=== PATIENT | female | born 1955 | race Caucasian/White ===

== ENCOUNTER 2017-09-22 15:18 | Inpatient (IN) | payer MEDICAID, OTHER ==
[2017-09-22] MEDS ORDERED: Ketorolac Tromethamine 30 MG/ML VIAL ONE (15:59)
[2017-09-22] MEDS ORDERED: Dextrose 5% in Water 1,000 ML IV PRN (17:06)
[2017-09-22] MEDS ORDERED: Dextrose 50% Abboject 50 ML SYRINGE SLOW IVP PRN (17:06)
[2017-09-22] MEDS ORDERED: Ondansetron HCl/PF 4 MG/2 ML Vial IVP PRN (17:06)
[2017-09-22] MEDS ORDERED: D5 1/2 NS w/20 mEq KCL 1,000 ML IV SCH (17:15)
[2017-09-22 18:57] LABS: #Eosinphils 0.1 thou/uL (0.0-0.7); #Lymphocytes 1.9 thou/uL (1.20-3.40); #Monocytes 0.6 thou/uL (0.11-0.59); %Eosinophils 0.5 % (0.0-10.0); %Lymphocytes 16.4 % (21.0-51.0); %Monocytes 4.9 % (0.0-10.0); %Neutrophils 78.2 % (42.0-75.0); Hemoglobin 10.2 g/dL (12.0-16.0); Mean Corpuscular HGB CONC 32.7 g/dL (32.0-36.0); Mean Corpuscular Hemoglobin 28.8 pg (27.0-31.0); Mean Platelet Volume 7.8 fL (7.4-10.4); Platelet Count 273 thou/uL (130-400); RBC Distribution Width 12.8 % (11.5-14.5); Red Blood Cell (RBC) Count 3.54 mill/uL (4.20-5.40); White Blood Cell (WBC) Count 11.5 thou/uL (4.8-10.8)
[2017-09-22 19:05] LABS: PTT 23.7 SEC (22.9-36.1); Prothrombin Time 13.3 SEC (12.0-14.7)
[2017-09-22 19:26] LABS: ALT (SGPT) 153 U/L (8-55); AST (SGOT) 342 U/L (5-34); Albumin 3.7 g/dL (3.5-5.0); Alkaline Phosphatase 129 U/L (40-150); Anion Gap 11 mmol/L (10-20); BUN (Urea Nitrogen) 25 mg/dL (9.8-20.1); Bilirubin, Total 0.5 mg/dL (0.2-1.2); Calc. Creatinine Clearance 0 mL/min (70-130); Calcium 8.8 mg/dL (7.8-10.44); Carbon Dioxide 25 mmol/L (22-29); Chloride 107 mmol/L (98-107); Estimated GFR-MDRD 48; Globulin 2.6 g/dL (2.4-3.5); Glucose 280 mg/dL (70-105); Potassium 4.7 mmol/L (3.5-5.1); Protein, Total 6.3 g/dL (6.0-8.3); Sodium 138 mmol/L (136-145)
--- NOTE | 2017-09-22 19:51 | RAD ---
RADIOGRAPH PELVIS 1 VIEW: 09/22/17 HISTORY: 61-year-old female status post trauma to the pelvis from fall. FINDINGS: The pelvic ring is intact with no evidence of fracture or dislocation. IMPRESSION: Negative. POS: BUBBA
--- NOTE | 2017-09-22 19:54 | RAD ---
RADIOGRAPH CHEST 1 VIEW: 09/22/17 HISTORY: 61-year-old female with femoral fracture. Preoperative clearance. FINDINGS: There is cardiomegaly. There is no evidence of air space density, pulmonary edema, or pneumothorax. T he lateral costophrenic angles are sharp. IMPRESSION: 1) No acute pulmonary findings. 2) Cardiomegaly without congestive heart failure. caryn [] POS: BUBBA
--- NOTE | 2017-09-22 21:03 | HP ---
DATE OF ADMISSION: 09/22/2017 ADMITTING PHYSICIAN: Dr. Jarrod Cordero. CONSULTING PHYSICIAN: Dr. Jarad Soliz. HISTORY OF PRESENT ILLNESS: A 61-year-old female presented to an outside facility and then transferred to [facility] after a ground level fall in which she sustained a left distal femur fracture. She reports she was ambulating with her walker when she stumbled and fell to the ground onto her left leg. She was then unable to get up and EMS was summoned and transported her to an outside facility where the femur fracture was identified. She is now being transferred to [facility] for higher level of care. She complained of numbness of bilateral lower extremities from chronic diabetic neuropathy. She is able to move all extremities. Pain in left thigh area is exacerbated by movement, relieved by nothing. PAST MEDICAL HISTORY: Diabetes, hyperlipidemia, hypertension, chronic back pain. PAST SURGICAL HISTORY: Cholecystectomy, appendectomy. SOCIAL HISTORY: Patient lives at home with her father. She denies tobacco, alcohol, or drug use. FAMILY HISTORY: Patient reports unknown cardiac history from parents as well as siblings. CURRENT MEDICATIONS: Gabapentin 800 mg p.o. b.i.d., lisinopril/ hydrochlorothiazide 20/12.5 mg 1 tablet p.o. q. day. REVIEW OF SYSTEMS: Constitutional: Patient denies chills, fever, weight loss or gain, weakness. Pulmonary: Patient denies shortness of breath, difficulty breathing, or cough. Cardiovascular: Patient denies chest pain or palpitations. Gastrointestinal: Patient denies abdominal pain, nausea, vomiting, diarrhea, or constipation. Musculoskeletal: Patient reports chronic back pain and left distal thigh pain, bilateral lower extremity neuropathy. Neurologic: Patient denies focal weakness, seizures, headache, or paresthesia. PHYSICAL EXAMINATION: VITAL SIGNS: Blood pressure 112/46, pulse 66, respirations 22, temperature 97.8 , O2 sat 94% on room air. CONSTITUTIONAL: Well-nourished, well-developed female in no acute distress. HEENT: Normocephalic, atraumatic. PULMONARY: Bilateral breath sounds equal. No respiratory distress. CARDIAC: Regular rate and rhythm. Heart sounds normal. ABDOMEN: Soft, nontender, nondistended. EXTREMITIES: Left lower extremity, painful distal thigh with movement. Numbness to bilateral lower extremities. Patient reports there is chronic due to diabetic neuropathy. Cap refill brisk. Upper extremities, normal range of motion. Neurovascularly intact. NEUROLOGIC: GCS 15. Awake, alert, oriented. ASSESSMENT: 1. A 61-year-old female status post ground level fall. 2. Comminuted supracondylar left distal femur fracture with intercondylar extension. 3. History of diabetes. 4. History of hypertension. PLAN: 1. Admit to hospital by the Trauma services. 2. Consult Dr. Jarad Soliz, Orthopedics done by GLORIA Johnson 3. Diabetic diet tonight. N.p.o. after midnight. 4. Plan for OR tomorrow with Orthopedics. HPI, review of system, physical exam, assessment and plan were discussed with attending surgeon, Dr. Cordero. MIKE
[2017-09-22 21:39] VITALS: BMI 38.9
[2017-09-22] MEDS: Famotidine/PF 20 mg/2ml Vial SLOW IVP SCH (21:45)
[2017-09-22] MEDS: Morphine 4 MG/ML VIAL SLOW IVP PRN (21:46)
[2017-09-23] MEDS: D5 1/2 NS w/20 mEq KCL 1,000 ML IV SCH ×3 (00:22→17:14)
[2017-09-23] MEDS: Ketorolac Tromethamine 30 MG/ML VIAL IVP SCH ×4 (00:23→17:20)
[2017-09-23 06:28] LABS: Bilirubin Small (Negative); Blood, Urine Negative (Negative); Clarity CLOUDY (Clear); Glucose, Urine (Dipstick) 500 mg/dL (Negative); Leukocyte Moderate (Negative); Nitrite Negative (Negative); Protein, Urine (Dipstick) Negative (Neg-Trace); Specific Gravity, Urine 1.027 (1.002-1.036); Urobilinogen 0.2 mg/dL (0.2-1.0); pH, Urine 5.5 (5.0-9.0)
[2017-09-23 06:31] LABS: Bacteria/HPF 1+ HPF (None Seen); Hyaline Casts/LPF 0-3 HYALINE CAST LPF (0-3 Hyaline); Pathc Cast-AUWi Flag 0.67 (0-2.49); WBC/HPF 21-50 HPF (0-3)
--- NOTE | 2017-09-23 08:16 | CON ---
DATE OF CONSULTATION: 09/22/2017 CONSULTING DIAGNOSIS: Left femur fracture. HISTORY OF PRESENT ILLNESS: Ms. Braun is a 61-year-old female with history of diabetes, diabetic ne uropathy, limited ambulatory status, who walks just mainly around the house using a walker, who prese nts with complaining of left knee pain. The patient fell while standing up. The patient rates her p ain as high as 10/10. PAST MEDICAL HISTORY: She states that she has not ambulated for some period of time. PAST MEDICAL HISTORY: Include diabetes, neuropathy, hyperlipidemia, hypercholesterolemia, hypertensi on, and low back pain. PAST SURGICAL HISTORY: Include a cholecystectomy and an appendectomy. MEDICATIONS: Please see administration list for full list. ALLERGIES: No known drug allergies. SOCIAL HISTORY: Nonsmoker, nondrinker and no alcohol. The patient's son is at bedside. REVIEW OF SYSTEMS: Noncontributory. PHYSICAL EXAMINATION: VITAL SIGNS: 112/46, 60, 22, 97.8 and pain is 10/10, and 94% on room air. GENERAL: Alert and oriented female in no acute distress, resting in bed. EXTREMITIES: Left lower extremity, the patient has an external rotated left lower extremity with no open wounds. The patient has a plantar flex foot. It is warm and well perfused. The patient has no sensation from her tibia down to her foot or limited sensation. She is not moving her foot or plant arflex her foot, which patient states is consistent with previous exam. Her right lower extremity puentes s weak plantar dorsiflexion and 3/5 plantar flexion. Radiographs of the patient's left lower extremi ty show a left distal femur fracture with an intracondylar split with diffuse osteopenia and degenera tive changes in the left knee. IMPRESSION: 1. Left distal femur fracture, supracondylar fracture demonstrating intercondylar split. 2. Diabetes. 3. Neuropathy. 4. Hypertension. 5. Hyperlipidemia. 6. Osteopenia. ASSESSMENT AND PLAN: I discussed with patient and family the risks and benefits of operative fixatio n of left distal femur. I discussed patient is a fall risk given her limited function of her bilatera l lower extremities. I discussed that operative intervention will help to stabilize the limb. I dis cussed that my concerns of union and potentially taking 6 months for union of the patient's left dist al femur because of her history of diabetes and osteoporosis, and mechanism of fracture. I discussed the risks and benefits of surgery to include pain, scar, bleeding, infection, damage to vital struct ures, loss of life or limb. I discussed the risks and benefits with the patient. The patient desire s to proceed with surgical intervention in the morning. The patient will be admitted per trauma and we will plan for surgery in the morning.
[2017-09-23] MEDS ORDERED: Morphine 4 MG/ML VIAL ONE (09:13)
[2017-09-23] MEDS ORDERED: CEFAZOLIN/Water 2 GM/20 ML SYRINGE ONE (09:13)
[2017-09-23] MEDS ORDERED: Tranexamic Acid 1,000 MG/100 ML BAG ONE (09:13)
[2017-09-23] MEDS ORDERED: Levofloxacin 500 mg/D5W 100 ml Premix Bag ONE (09:45)
[2017-09-23] MEDS ORDERED: Insulin Regular 300 UNITS/3 ML VIAL ONE (09:50)
[2017-09-23] MEDS ORDERED: Fentanyl 250 MCG/5 ML VIAL ONE (10:27)
[2017-09-23] MEDS: Famotidine/PF 20 mg/2ml Vial SLOW IVP SCH ×2 (12:23→20:59)
[2017-09-23] MEDS ORDERED: Ondansetron HCl/PF 4 MG/2 ML Vial IVP PRN (12:36)
[2017-09-23] MEDS ORDERED: Promethazine HCl 25 MG/ML VIAL IM PRN (12:36)
[2017-09-23] MEDS ORDERED: Promethazine HCl 25 MG/ML VIAL SLOW IVP PRN (12:36)
[2017-09-23] MEDS ORDERED: Cepastat Lozenges 1 LOZ PO PRN ×2 (13:27→17:59)
[2017-09-23] MEDS ORDERED: Bisacodyl 10 MG SUPP PR PRN (13:27)
[2017-09-23] MEDS ORDERED: Fleet Enema 133 ML BOT PR PRN (13:27)
[2017-09-23] MEDS ORDERED: Milk Of Magnesia 30 ML UDCUP PO PRN (13:27)
[2017-09-23] MEDS ORDERED: Ketorolac Tromethamine 30 MG/ML VIAL ONE (13:56)
[2017-09-23] MEDS ORDERED: Lidocaine 1% PF 5 ML VIAL ONE (13:56)
[2017-09-23] MEDS ORDERED: Ondansetron HCl/PF 4 MG/2 ML Vial ONE (13:56)
[2017-09-23] MEDS ORDERED: Propofol 200 MG/20 ML VIAL ONE (13:56)
[2017-09-23] MEDS ORDERED: PHENYLEPHRINE-NS 100 MCG/ML 10 ML SYRINGE ONE (13:56)
--- NOTE | 2017-09-23 15:17 | RAD ---
LEFT FEMUR: TECHNIQUE: A total of 6 views obtained. INDICATION: Six fluoroscopic images from the OR presented during internal fixation procedure to left femur. FINDINGS/IMPRESSION: These films demonstrate plate and screws transfixing the left femur. POS: BUBBA
[2017-09-23] MEDS: CEFAZOLIN/Water 2 GM/20 ML SYRINGE SLOW IVP SCH (17:22)
[2017-09-23] MEDS: Morphine 4 MG/ML VIAL SLOW IVP PRN (17:27)
[2017-09-23] MEDS: Senokot S 8.6-50 MG TAB PO SCH (20:59)
--- NOTE | 2017-09-23 20:59 | OP ---
PREOPERATIVE DIAGNOSIS: Left supracondylar distal femur fracture, intercondylar split. POSTOPERATIVE DIAGNOSIS: Left supracondylar distal femur fracture, intercondylar split. PROCEDURE PERFORMED: Open reduction internal fixation supracondylar fracture with intercondylar split. STAFF: Jarad Soliz M.D. CASHIER OR CHECKER STOCK CLERK: Juanpablo Escobar PA-C. ANESTHESIA: TIVA. The patient received a general endotracheal intubation. ESTIMATED BLOOD LOSS: 200 mL. TOURNIQUET TIME: None. IMPLANTS: A variable angle 45 x 336 mm implant with one 5.0 conical screw, with five 5-0 screws and four 4.5 nonlocking screws, one was in and out. ANTIBIOTICS: Received Levaquin 500, Ancef 2 grams, TXA 1 gram. COMPLICATIONS: None. HISTORY OF PRESENT ILLNESS: Ms. Vanegas is a 61-year-old female who suffered a fracture of the left distal femur. PAST MEDICAL HISTORY: Includes diabetic neuropathy. The patient has difficulty with ambulation. She has got plantar flexion, has minimal dorsiflexion in her bilateral feet. The patient has had a history of low back pain, I wonder if she has had some chronic condition versus some disk disease relating to foot drops bilaterally. The patient broke her left femur while standing. The patient's left distal femur fracture, had intercondylar split with comminution osteopenia, she is diabetic. I discussed with the patient the risks and benefits of surgery to include pain, scar, bleeding, infection, damage to vital structures, decreased range of motion or strength, failure of procedure, continued pain despite surgical intervention. The patient understood the risks and benefits of procedure and elected to proceed. DESCRIPTION OF PROCEDURE: Time out was performed designating the patient's left lower extremity as the operative site based on sight, consents, and marking. After completion of timeout, the patient's left upper extremity prepped and draped in sterile fashion. We made an incision anteriolateraly roximally, splitting the femur down through skin, came to the IT band. The IT band was split. We exposed distal femur. We used a Smith to expose the shaft of the femur. We then sized our plate to fit a 6 mm just right below the lesser trochanter at the curve. At the beginning of the greater trochanter, we reduced the fracture using a bump as well as the bone foam into position with a little bit of traction. We placed our provisional box pin distally. I then used locking proximally through a stab incision to create our box with a drillbit, make sure we were bicortical on both. We looked under AP and lateral radiographs, we then used a 4.5 nonlocking screw in the middle of the plate to compress the bone. We looked under fluoroscopic guidance, we placed a bump underneath. We then placed a conical screw distally to compress it and put our drill bit proximally to help make sure did not break. We then placed conical screw, removed our distal drill bit, we then placed another screw to compress the fracture, split of the shaft together, 4.5 screw placed, one in and out 40- 42 and compress the bone down. We then moved distally. We sequentially placed our screws, 4 distal 5-0 locking screws. I was happy with the overall length as well as compression of the fracture. We then moved proximally and we filled 2 more 4.5 nonlocking screws followed by a 5-0 locking screw proximally, 3 more in the shaft and 1 locking 5-0 screw above at the tip. We then washed, we used Stratafix to close the patient's large incision in anterolateral approach. We then closed with 2-0, and sheridan. The patient will be nonweightbearing likely for 12 weeks in the DVT prophylaxis. Ancef for 24 hours as well as for UTIs should be admitted back to Trauma. MIKE
[2017-09-23] MEDS ORDERED: Fentanyl 100 MCG/2 ML VIAL SLOW IVP PRN (21:20)
[2017-09-24] MEDS: Ketorolac Tromethamine 30 MG/ML VIAL IVP SCH ×2 (00:14→06:22)
[2017-09-24] MEDS: CEFAZOLIN/Water 2 GM/20 ML SYRINGE SLOW IVP SCH (00:14)
[2017-09-24] MEDS: D5 1/2 NS w/20 mEq KCL 1,000 ML IV SCH ×2 (01:15→06:22)
[2017-09-24 04:43] LABS: Hemoglobin 8.2 g/dL (12.0-16.0); Mean Corpuscular HGB CONC 33.2 g/dL (32.0-36.0); Mean Corpuscular Hemoglobin 29.3 pg (27.0-31.0); Mean Corpuscular Volume 88.3 fl (81.0-99.0); Mean Platelet Volume 8.1 fL (7.4-10.4); Platelet Count 223 thou/uL (130-400); RBC Distribution Width 12.7 % (11.5-14.5); White Blood Cell (WBC) Count 9.5 thou/uL (4.8-10.8)
[2017-09-24] MEDS: HYDROcodone/Acetaminophen 10/325 mg Tablet PO PRN ×3 (07:30→20:45)
[2017-09-24] MEDS: Multivitamin W/ Minerals 1 TAB PO SCH (08:40)
[2017-09-24] MEDS: Ferrous Gluconate 324 MG TAB PO SCH ×2 (08:40→17:33)
[2017-09-24] MEDS: Famotidine/PF 20 mg/2ml Vial SLOW IVP SCH (08:40)
[2017-09-24] MEDS: Senokot 8.6 MG TAB PO SCH (08:40)
[2017-09-24] MEDS: Docusate 100 MG CAP PO SCH (08:40)
[2017-09-24] MEDS: Enoxaparin Sodium 30 MG/0.3 ML SYRINGE SC SCH (08:41)
[2017-09-24] MEDS: Senokot S 8.6-50 MG TAB PO SCH (08:41)
--- NOTE | 2017-09-24 13:54 | PRG ---
DATE OF SERVICE: 09/24/2017 This is Eugenie Estrada, nurse practitioner, dictating a daily progress note for Dr. Jarrod Cordero. ATTENDING PHYSICIAN: Dr. Jarrod Cordero. SUBJECTIVE: The patient is a 61-year-old female, status post ground-level fall with left distal femur fracture. She is postop day #1 status post ORIF of left distal femur. She was stable on the floor overnight. She reports pain has been well controlled. OBJECTIVE: VITAL SIGNS: Temperature 98.6, pulse 80, respirations 14, O2 sat 95% on room air, blood pressure 132/75. GENERAL: A 61-year-old female, lying in bed, in no acute distress. PULMONARY: Bilateral breath sounds, clear to auscultation. No respiratory distress. CARDIOVASCULAR: Regular rate and rhythm. Heart sounds normal. ABDOMEN: Soft, nontender, nondistended. EXTREMITIES: Patient with chronic diabetic neuropathy, bilateral lower extremities. Minimal pain with movement of left leg. NEUROLOGIC: GCS 15. A and O x3. ASSESSMENT: 1. A 61-year-old female status post ground-level fall. 2. Left distal femur fracture, status post open reduction internal fixation. 3. History of diabetic neuropathy. 4. History of diabetes. PLAN: 1. Begin PT/OT for mobilization. 2. Hemoglobin and hematocrit down from 10.2/31 to 8.2/24.7. Monitor. Transfuse as indicated. 3. Lovenox for DVT prophylaxis. 4. Pepcid for PUD prophylaxis. 5. Antibiotics per ortho orders. 6. Case management consult for discharge planning. Patient was reviewed with Dr. Cordero, who agrees with the assessment and plan. [facility]
--- NOTE | 2017-09-24 14:19 | PRG ---
DATE OF SERVICE: 09/24/2017 A 61-year-old female status post left distal femur fracture status post ORIF on 09/23/[address] Dulce andrade. The patient does not have any resources at home to help her and she will need to go to a swing bed or assisted living until she becomes dependent enough to care for herself. Her family is presen t in the room and they are all working and cannot help her at home. The patient currently does not h ave any questions. Her pain is adequately controlled. Agree with plan outlined per RADHA Ceballos . Awaiting placement.
[2017-09-24] MEDS: Famotidine 20 MG TAB PO SCH (20:45)
[2017-09-25] MEDS ORDERED: Dextrose 50% Abboject 50 ML SYRINGE SLOW IVP PRN (00:14)
[2017-09-25] MEDS ORDERED: Dextrose 5% in Water 1,000 ML IV PRN (00:14)
[2017-09-25] MEDS ORDERED: HumaLOG 300 UNITS/3 ML VIAL SC PRN (00:14)
[2017-09-25 05:07] LABS: Hemoglobin 7.3 g/dL (12.0-16.0); Mean Corpuscular HGB CONC 33.9 g/dL (32.0-36.0); Mean Corpuscular Hemoglobin 29.7 pg (27.0-31.0); Mean Corpuscular Volume 87.7 fl (81.0-99.0); Mean Platelet Volume 8.3 fL (7.4-10.4); Platelet Count 211 thou/uL (130-400); RBC Distribution Width 12.7 % (11.5-14.5); Red Blood Cell (RBC) Count 2.45 mill/uL (4.20-5.40)
[2017-09-25] MEDS: Enoxaparin Sodium 30 MG/0.3 ML SYRINGE SC SCH (08:41)
[2017-09-25] MEDS: Senokot 8.6 MG TAB PO SCH (08:42)
[2017-09-25] MEDS: Ferrous Gluconate 324 MG TAB PO SCH ×2 (08:42→17:36)
[2017-09-25] MEDS: Famotidine 20 MG TAB PO SCH ×2 (08:42→20:42)
[2017-09-25] MEDS: Docusate 100 MG CAP PO SCH (08:42)
[2017-09-25] MEDS: Alogliptin 25 MG TAB PO SCH (08:42)
[2017-09-25] MEDS: Multivitamin W/ Minerals 1 TAB PO SCH (08:43)
[2017-09-25] MEDS: metFORMIN XR 500 MG TAB PO SCH (08:43)
[2017-09-25] MEDS: HYDROcodone/Acetaminophen 10/325 mg Tablet PO PRN (11:11)
[2017-09-25] MEDS: HumaLOG 300 UNITS/3 ML VIAL SC PRN ×3 (11:58→21:14)
--- NOTE | 2017-09-25 16:01 | PRG ---
DATE OF SERVICE: 09/25/2017 ATTENDING PHYSICIAN: Dr. Mick Moctezuma. This is Eugenie Estrada, nurse practitioner, dictating a daily progress note for Dr. Mick Moctezuma. SUBJECTIVE: The patient is a 61-year-old female, status post ground-level fall with left distal femu r fracture. She is postop day #2 status post ORIF of the left distal femur. She was stable in the f miracle overnight. Her blood sugars have continued to be elevated. Pain has been well controlled. OBJECTIVE: VITAL SIGNS: Temperature 98.5, pulse 85, respirations 16, O2 sat 95% on room air, blood pressure 127 /74. GENERAL: A 61-year-old female, lying in bed, in no acute distress. PULMONARY: Bilateral breath sounds, clear to auscultation. No respiratory distress. CARDIOVASCULAR: Regular rate and rhythm. Heart sounds normal. ABDOMEN: Soft, nontender, nondistended. EXTREMITIES: Patient with chronic diabetic neuropathy, bilateral lower extremities. Minimal pain wi th movement of left leg. NEUROLOGIC: GCS 15. Alert and oriented x3. ASSESSMENT: 1. A 61-year-old female, status post ground-level fall. 2. Left distal femur fracture, status post open reduction internal fixation. 3. History of diabetic neuropathy. 4. History of diabetes, now with uncontrolled hyperglycemia. PLAN: 1. Continue OT/PT for mobilization. 2. Increase sliding scale insulin to moderate. H and H 7.3/21.5 down from 8.2/24.7. Monitor. Brown sfuse as indicated. 3. Lovenox for deep vein thrombosis prophylaxis. 4. Pepcid for peptic ulcer disease prophylaxis. 5. Case management consult for discharge planning. Patient was reviewed with Dr. Moctezuma, who agrees with the assessment and plan.
[2017-09-26 05:27] LABS: Hemoglobin 7.3 g/dL (12.0-16.0); Mean Corpuscular HGB CONC 33.3 g/dL (32.0-36.0); Mean Corpuscular Hemoglobin 29.4 pg (27.0-31.0); Mean Corpuscular Volume 88.3 fl (81.0-99.0); Mean Platelet Volume 7.9 fL (7.4-10.4); Platelet Count 252 thou/uL (130-400); RBC Distribution Width 12.7 % (11.5-14.5); White Blood Cell (WBC) Count 10.2 thou/uL (4.8-10.8)
[2017-09-26 05:34] LABS: Anion Gap 9 mmol/L (10-20); BUN (Urea Nitrogen) 12 mg/dL (9.8-20.1); Calc. Creatinine Clearance 115 mL/min (70-130); Calcium 8.6 mg/dL (7.8-10.44); Carbon Dioxide 26 mmol/L (22-29); Chloride 104 mmol/L (98-107); Estimated GFR-MDRD 71; Glucose 208 mg/dL (70-105); Magnesium 1.7 mg/dL (1.6-2.6); Phosphorus 2.2 mg/dL (2.3-4.7); Potassium 4.4 mmol/L (3.5-5.1); Sodium 135 mmol/L (136-145)
[2017-09-26] MEDS: HumaLOG 300 UNITS/3 ML VIAL SC PRN ×3 (06:35→17:17)
[2017-09-26] MEDS: Ciprofloxacin 500 MG TAB PO SCH ×2 (07:45→20:02)
[2017-09-26] MEDS: Ferrous Gluconate 324 MG TAB PO SCH ×2 (08:51→16:40)
[2017-09-26] MEDS: Alogliptin 25 MG TAB PO SCH (08:51)
[2017-09-26] MEDS: Docusate 100 MG CAP PO SCH (08:52)
[2017-09-26] MEDS: Famotidine 20 MG TAB PO SCH ×2 (08:52→20:02)
[2017-09-26] MEDS: metFORMIN XR 500 MG TAB PO SCH (08:52)
[2017-09-26] MEDS: Enoxaparin Sodium 30 MG/0.3 ML SYRINGE SC SCH (08:52)
[2017-09-26] MEDS: Multivitamin W/ Minerals 1 TAB PO SCH (08:52)
[2017-09-26] MEDS: Polyethylene Glycol 3350 17 GM Packet PO SCH (08:53)
[2017-09-26] MEDS: Senokot 8.6 MG TAB PO SCH (08:53)
[2017-09-26] MEDS: HYDROcodone/Acetaminophen 10/325 mg Tablet PO PRN ×2 (15:22→20:02)
--- NOTE | 2017-09-26 20:46 | PRG ---
DATE OF SERVICE: 09/26/2017 SUBJECTIVE: The patient is a 61-year-old woman who sustained a left distal femur fracture after grou nd level fall. The patient underwent ORIF of the same, postop day #3, she had no issues overnight. States that she is tolerating a diet and her pain is being controlled. PHYSICAL EXAMINATION: VITAL SIGNS: Temperature is 98.5, heart rate 76, blood pressure 122/76, respirations 18, oxygen satu ration 97% on room air. GENERAL: The patient is resting comfortably in bed. She is alert and oriented x3. Her Max coma scale is 15. HEENT: Unremarkable. HEART: Regular rate and rhythm. LUNGS: Clear to auscultation bilaterally. ABDOMEN: Soft, flat, nontender with active bowel sounds. LABORATORY FINDINGS: White blood cell count 10.2, hemoglobin 7.3, hematocrit 22.0, platelets 252. S odium 135, potassium 4.4, chloride 104, CO2 of 26, BUN 12, creatinine 0.82, glucose 28, magnesium 1.7 , phosphorus 2.2. ASSESSMENT AND PLAN: 1. Status post ground level fall. 2. Left distal femur fractures status post open reduction internal fixation. 3. Hyperglycemia. PLAN: Will be to continue PT and OT, await placement, decision, glucose management, DVT and gastriti s prophylaxis. This case was discussed with Dr. Moctezuma at rounds.
[2017-09-27] MEDS: Ciprofloxacin 500 MG TAB PO SCH ×2 (06:07→20:47)
[2017-09-27] MEDS: HumaLOG 300 UNITS/3 ML VIAL SC PRN ×4 (06:07→21:58)
[2017-09-27] MEDS: Ferrous Gluconate 324 MG TAB PO SCH ×2 (07:49→17:24)
[2017-09-27] MEDS: Alogliptin 25 MG TAB PO SCH (08:41)
[2017-09-27] MEDS: Docusate 100 MG CAP PO SCH (08:41)
[2017-09-27] MEDS: metFORMIN XR 500 MG TAB PO SCH (08:42)
[2017-09-27] MEDS: Enoxaparin Sodium 30 MG/0.3 ML SYRINGE SC SCH (08:42)
[2017-09-27] MEDS: Famotidine 20 MG TAB PO SCH ×2 (08:42→20:47)
[2017-09-27] MEDS: Senokot 8.6 MG TAB PO SCH (08:43)
[2017-09-27] MEDS: Polyethylene Glycol 3350 17 GM Packet PO SCH (08:43)
[2017-09-27] MEDS: Multivitamin W/ Minerals 1 TAB PO SCH (08:49)
[2017-09-27] MEDS: HYDROcodone/Acetaminophen 10/325 mg Tablet PO PRN (10:04)
--- NOTE | 2017-09-27 18:40 | PRG ---
DATE OF SERVICE: 09/27/2017 SUBJECTIVE: The patient is a 61-year-old woman who sustained a left distal femur fracture, which und erwent ORIF of the same. The patient has been doing well, though she has been progressing slowly wit h physical therapy. The patient is currently awaiting placement selection by her family and patient does not live in this area, would like to be closer to home, so the case management had been helping look in the [place] area. Otherwise, the patient states that she is tolerating a diet and her pain i s controlled. OBJECTIVE: VITAL SIGNS: Temperature is 98.1, heart rate 73, blood pressure 121/71, respirations 20 and oxygen s aturation 96% on room air. GENERAL: Patient is resting comfortably in bed. She is alert and oriented x3 and her [place] coma s desirae is 15. HEENT: Unremarkable. LUNGS: Clear to auscultation with good inspiratory and expiratory effort. HEART: Regular rate and rhythm. ABDOMEN: Soft, flat and nontender with active bowel sounds. EXTREMITIES: Neurovascularly intact x4. Surgical site is clean, dry and intact. LABORATORY DATA: There are no labs or radiographs to review this morning. ASSESSMENT AND PLAN: 1. Status post ground level fall. 2. Status post open reduction and internal fixation of the left distal femur fracture. PLAN: Will be to continue physical and occupational therapy and await placement decision. The evalu ation examination was discussed with Dr. Moctezuma after rounds this morning.
[2017-09-28 05:35] LABS: #Eosinphils 0.4 thou/uL (0.0-0.7); #Lymphocytes 2.2 thou/uL (1.20-3.40); #Neutrophils 7.5 thou/uL (1.40-6.50); %Basophils 0.4 % (0.0-1.0); %Eosinophils 3.8 % (0.0-10.0); %Lymphocytes 19.9 % (21.0-51.0); %Monocytes 9.2 % (0.0-10.0); %Neutrophils 66.7 % (42.0-75.0); Hemoglobin 7.9 g/dL (12.0-16.0); Mean Corpuscular HGB CONC 33.1 g/dL (32.0-36.0); Mean Corpuscular Hemoglobin 29.2 pg (27.0-31.0); Mean Corpuscular Volume 88.2 fl (81.0-99.0); Mean Platelet Volume 7.3 fL (7.4-10.4); Platelet Count 356 thou/uL (130-400); RBC Distribution Width 12.5 % (11.5-14.5); White Blood Cell (WBC) Count 11.3 thou/uL (4.8-10.8)
[2017-09-28] MEDS: Ciprofloxacin 500 MG TAB PO SCH ×2 (05:50→20:30)
[2017-09-28] MEDS: HumaLOG 300 UNITS/3 ML VIAL SC PRN ×4 (05:50→21:24)
[2017-09-28 06:00] LABS: Anion Gap 14 mmol/L (10-20); BUN (Urea Nitrogen) 11 mg/dL (9.8-20.1); Calc. Creatinine Clearance 118 mL/min (70-130); Calcium 8.8 mg/dL (7.8-10.44); Carbon Dioxide 23 mmol/L (22-29); Chloride 101 mmol/L (98-107); Estimated GFR-MDRD 73; Glucose 197 mg/dL (70-105); Magnesium 2.1 mg/dL (1.6-2.6); Phosphorus 2.8 mg/dL (2.3-4.7); Potassium 4.4 mmol/L (3.5-5.1); Sodium 134 mmol/L (136-145)
[2017-09-28] MEDS: Alogliptin 25 MG TAB PO SCH (08:53)
[2017-09-28] MEDS: Ferrous Gluconate 324 MG TAB PO SCH ×2 (08:53→16:02)
[2017-09-28] MEDS: Docusate 100 MG CAP PO SCH (08:53)
[2017-09-28] MEDS: Enoxaparin Sodium 30 MG/0.3 ML SYRINGE SC SCH (08:53)
[2017-09-28] MEDS: Polyethylene Glycol 3350 17 GM Packet PO SCH (08:54)
[2017-09-28] MEDS: metFORMIN XR 500 MG TAB PO SCH (08:54)
[2017-09-28] MEDS: Senokot 8.6 MG TAB PO SCH (08:54)
[2017-09-28] MEDS: Famotidine 20 MG TAB PO SCH ×2 (08:54→20:30)
[2017-09-28] MEDS: Multivitamin W/ Minerals 1 TAB PO SCH (08:54)
[2017-09-28] MEDS ORDERED: diphenhydrAMINE 25 MG CAP PO PRN (10:10)
--- NOTE | 2017-09-28 10:52 | PQF ---
CLINICAL DOCUMENTATION IMPROVEMENT CLARIFICATION FORM: ICD-10 Updated PLEASE DO AN ADDENDUM TO THE PROGRESS NOTE WITH ANY DOCUMENTATION UPDATES OR ADDITIONS AND CARRY THROUGH TO DC SUMMARY. THANK YOU. DATE: 09/28/17 ATTN: Dr. Moctezuma 10/03/17 Please exercise your independent, professional judgment in responding to the clarification form. Clinical indicators are provided on the bottom of this form for your review Please check appropriate box(s): [ ] UTI please specify if due to or related to (as applicable): [ ] Unable to determine etiology UTI Site: [ ] Kidney [ ] Ureter [ ] Bladder [ ] Urethra [ ] Unable to determine Specify Organism (if known): [ ] Unknown organism [ ] Contaminated urine specimen without UTI [ ] Other diagnosis [ ] Unable to determine In addition, please specify: Present on Admission (POA): [ ] Yes [ ] No [ ] Unable to determine For continuity of documentation, please document condition throughout progress notes and discharge summary. Thank You. CLINICAL INDICATORS - SIGNS / SYMPTOMS / LABS LAB: URINALYSIS 09/23: UR LEUKOCYTE ESTERASE MODERATE H URINE WBC 21-50 H URINE BACTERIA 1+ H OP REPORT: 09/22 ANCEF FOR 24 HOURS WELL FOR UTIs SHOULD BE ADMITTED BACK TO TRAUMA RISKS: H&P: 61 YR OLD FEMALE,. COMMINUTED SUPRACONDYLAR L DISTAL FEMUR FX W/ INTERCONDYLAR EXTENSION. HX OF DM, HTN. TREATMENT: CPOE 09/22: URINALYSIS, PRE-OP HIP FRACTURE. SOURCE: URINE CLEAN CATCH. CPOE 09/26: CIPRO 500 MG PO 00, 1999 Thank you, Genesis (This form is maintained as a part of the permanent medical record) 2015 [employer]. All Rights Reserved Genesis Morillo RN, BSN [email or web address] Office: [phone] [facility]
--- NOTE | 2017-09-28 10:58 | PRG ---
DATE OF SERVICE: 09/28/2017 SUBJECTIVE: The patient is status post open reduction internal fixation of a left distal femur fract ure. She has been awaiting placement here in the hospital after her surgery. She is slowly progress ing with physical therapy, but we were informed today that her insurance does not cover a skilled jos[facility] facility, so we will attempt to get her other means of placement primarily due to the fact that the patient is definitely not ready to safely go home at this time. The patient this morning states that her pain is controlled. She is tolerating a diet. PHYSICAL EXAMINATION: VITAL SIGNS: Temperature is 98.6, heart rate 81, blood pressure 133/75, respirations 17, oxygen satu ration 96% on room air. GENERAL: The patient is resting in bed. She is alert and oriented x3. [place] coma scale is 15. HEENT: Unremarkable. LUNGS: Clear to auscultation with good inspiratory and expiratory effort. HEART: Regular rate and rhythm. ABDOMEN: Soft, flat, nontender with active bowel sounds. EXTREMITIES: Neurovascularly intact x4. The patient is currently wearing her left knee immobilizer which is clean, dry, and intact. LABORATORY DATA: White blood cell count 11.3, hemoglobin 7.9, hematocrit 23.8, platelets 356. Sodiu m 134, potassium 4.4, chloride 101, CO2 23, BUN 11, creatinine 0.80, glucose 197, magnesium 2.1, phos phorus 2.8. There are no radiographs to review this morning. ASSESSMENT AND PLAN: 1. Status post ground level fall. 2. Status post open reduction internal fixation of left distal femur fracture. The plan will be to continue physical and occupational therapy and await placement decision. The niok luation and examination were discussed with Dr. Moctezuma after rounds this morning.
[2017-09-28] MEDS: HYDROcodone/Acetaminophen 10/325 mg Tablet PO PRN (16:02)
[2017-09-29] MEDS: HumaLOG 300 UNITS/3 ML VIAL SC PRN ×3 (06:01→16:08)
[2017-09-29] MEDS: Ciprofloxacin 500 MG TAB PO SCH ×2 (06:02→20:32)
[2017-09-29] MEDS: Ondansetron ODT 4 MG TAB PO PRN (08:59)
[2017-09-29] MEDS: HYDROcodone/Acetaminophen 10/325 mg Tablet PO PRN ×3 (10:14→20:30)
[2017-09-29] MEDS: Alogliptin 25 MG TAB PO SCH (10:16)
[2017-09-29] MEDS: Ferrous Gluconate 324 MG TAB PO SCH ×2 (10:16→16:07)
[2017-09-29] MEDS: Docusate 100 MG CAP PO SCH (10:17)
[2017-09-29] MEDS: Enoxaparin Sodium 30 MG/0.3 ML SYRINGE SC SCH (10:17)
[2017-09-29] MEDS: Polyethylene Glycol 3350 17 GM Packet PO SCH (10:17)
[2017-09-29] MEDS: Senokot 8.6 MG TAB PO SCH (10:17)
[2017-09-29] MEDS: Famotidine 20 MG TAB PO SCH ×2 (10:18→20:32)
[2017-09-29] MEDS: metFORMIN XR 500 MG TAB PO SCH (10:18)
[2017-09-29] MEDS: Multivitamin W/ Minerals 1 TAB PO SCH (10:18)
--- NOTE | 2017-09-29 15:40 | PRG ---
DATE OF SERVICE: 09/29/2017 SUBJECTIVE: Patient is status post ground level fall resulting in a left distal femur fracture, whic h she has subsequently undergone open reduction and internal fixation of the same. She has currently been working with physical and occupational therapy and is awaiting placement. Initial facilities t hat were attempted declined for various reasons. We are currently waiting for the possible bed at a rehab facility. Otherwise, the patient states that she is tolerating a diet. Her pain is controlled . PHYSICAL EXAMINATION: VITAL SIGNS: Temperature is 97.8, heart rate 89, blood pressure 137/76, respirations 20, and oxygen saturation is 97% on room air. GENERAL: Patient is resting in bed. She is alert and oriented x3. Max coma scale is 15. HEENT: Unremarkable. LUNGS: Clear to auscultation bilaterally. HEART: Regular rate and rhythm. ABDOMEN: Soft, flat, nontender with active bowel sounds. EXTREMITIES: Neurovascularly intact x4. LABORATORY DATA AND IMAGING DATA: There are no labs or radiographs to review this morning. ASSESSMENT AND PLAN: 1. Status post ground level fall. 2. Status post open reduction and internal fixation of left distal femur fracture. Plan will be to continue supportive care. Continue physical and occupational therapy and await place ment decision. This case was discussed with Dr. Moctezuma at rounds this morning.
[2017-09-30] MEDS: Ciprofloxacin 500 MG TAB PO SCH ×2 (05:43→21:45)
[2017-09-30] MEDS: HumaLOG 300 UNITS/3 ML VIAL SC PRN (05:58)
--- NOTE | 2017-09-30 09:06 | PRG ---
DATE OF SERVICE: 09/30/2017 SUBJECTIVE: Patient is status post ground level fall in which she sustained a left distal femur frac ture, which has subsequently undergone open reduction internal fixation of the same. The patient has been working with physical and occupational therapy and is awaiting placement. We were notified yes terday that she had not received insurance approval for her placement, which means she will be here u ntil at least Monday till the weekend and holiday. The patient states she is tolerating a diet. He r pain is controlled. PHYSICAL EXAMINATION: VITAL SIGNS: Temperature is 97.7, heart rate 73, blood pressure 90/54, respirations 16, oxygen satur ation 93% on room air. HEENT: Unremarkable. LUNGS: Clear to auscultation bilaterally. HEART: Regular rate and rhythm. ABDOMEN: Soft, flat, nontender with active bowel sounds. EXTREMITIES: Neurovascularly intact x4. GENERAL: The patient is resting in bed. She is alert and oriented x3. [place] coma scale is 15. S he states that she was able to ambulate yesterday utilizing a walker, which is an improvement for her and she is making slow progress, but forward progress. ASSESSMENT: 1. Status post ground level fall. 2. Status post open reduction internal fixation of left distal femur fracture. PLAN: Will be to continue supportive care, physical and occupational therapy and await placement dec renetta. This case was discussed with Dr. Cordero this morning during rounds.
[2017-09-30] MEDS: Alogliptin 25 MG TAB PO SCH (10:00)
[2017-09-30] MEDS: Docusate 100 MG CAP PO SCH (10:00)
[2017-09-30] MEDS: Ferrous Gluconate 324 MG TAB PO SCH ×2 (10:00→21:45)
[2017-09-30] MEDS: Multivitamin W/ Minerals 1 TAB PO SCH (10:01)
[2017-09-30] MEDS: metFORMIN XR 500 MG TAB PO SCH (10:01)
[2017-09-30] MEDS: Famotidine 20 MG TAB PO SCH ×2 (10:01→21:45)
[2017-09-30] MEDS: Polyethylene Glycol 3350 17 GM Packet PO SCH (10:02)
[2017-09-30] MEDS: Senokot 8.6 MG TAB PO SCH (10:02)
[2017-09-30] MEDS: Enoxaparin Sodium 30 MG/0.3 ML SYRINGE SC SCH (10:02)
[2017-09-30] MEDS: HYDROcodone/Acetaminophen 10/325 mg Tablet PO PRN (10:07)
[2017-10-01] MEDS: Ciprofloxacin 500 MG TAB PO SCH ×2 (06:40→19:43)
--- NOTE | 2017-10-01 10:03 | PRG ---
DATE OF SERVICE: 10/01/2017 SUBJECTIVE: The patient is status post ground level fall in which she sustained a left distal femur fracture which she subsequently undergone repair for it. The patient has been working with physical and occupational therapy, although the patient states she has not used her walker yet because she is very scared of falling, I had a lengthy discussion with physical therapy and assuring her that the pa tient would be safe that the therapists over there will prevent her from falling and that she would n eed to start working with the walker. The patient is ready to go to her skilled facility as soon as insurance approval was obtained. Otherwise, the patient states that her pain is controlled and she i s tolerating a diet. PHYSICAL EXAMINATION: VITAL SIGNS: Temperature is 98.2, heart rate 76, blood pressure 103/73, respirations 16, and oxygen saturation is 97% on room air. GENERAL: Patient is resting comfortably in bed. She is alert and oriented x3. Her [place] coma sca le is 15. HEENT: Unremarkable. LUNGS: Clear to auscultation bilaterally. HEART: Regular rate and rhythm. ABDOMEN: Soft, flat, and nontender with active bowel sounds. EXTREMITIES: Neurovascularly intact x4. LABORATORY DATA AND IMAGING DATA: There are no labs or radiographs to review this morning. ASSESSMENT AND PLAN: 1. Status post ground level fall. 2. Status post open reduction and internal fixation of left distal femur fracture. PLAN: Will be to continue supportive care, physical and occupational therapy and await placement and approval.
[2017-10-01] MEDS: Senokot 8.6 MG TAB PO SCH (10:44)
[2017-10-01] MEDS: metFORMIN XR 500 MG TAB PO SCH (10:44)
[2017-10-01] MEDS: Multivitamin W/ Minerals 1 TAB PO SCH (10:44)
[2017-10-01] MEDS: Famotidine 20 MG TAB PO SCH ×2 (10:44→19:43)
[2017-10-01] MEDS: Fluconazole 100 MG TAB PO SCH (10:44)
[2017-10-01] MEDS: Docusate 100 MG CAP PO SCH (10:45)
[2017-10-01] MEDS: Ondansetron ODT 4 MG TAB PO PRN (10:45)
[2017-10-01] MEDS: Ferrous Gluconate 324 MG TAB PO SCH ×2 (10:45→18:58)
[2017-10-01] MEDS: Clotrimazole 1 % Cream 30 GM TUBE TOP SCH ×2 (10:45→19:43)
[2017-10-01] MEDS: Alogliptin 25 MG TAB PO SCH (10:45)
[2017-10-01] MEDS: Enoxaparin Sodium 30 MG/0.3 ML SYRINGE SC SCH (10:51)
[2017-10-01] MEDS: Polyethylene Glycol 3350 17 GM Packet PO SCH (10:52)
[2017-10-01] MEDS: HYDROcodone/Acetaminophen 10/325 mg Tablet PO PRN (21:43)
[2017-10-02] MEDS: Ciprofloxacin 500 MG TAB PO SCH ×2 (05:28→20:25)
[2017-10-02] MEDS: Famotidine 20 MG TAB PO SCH ×2 (08:38→20:22)
[2017-10-02] MEDS: metFORMIN XR 500 MG TAB PO SCH (08:38)
[2017-10-02] MEDS: Docusate 100 MG CAP PO SCH (08:38)
[2017-10-02] MEDS: Polyethylene Glycol 3350 17 GM Packet PO SCH (08:38)
[2017-10-02] MEDS: Fluconazole 100 MG TAB PO SCH (08:38)
[2017-10-02] MEDS: Senokot 8.6 MG TAB PO SCH (08:38)
[2017-10-02] MEDS: Alogliptin 25 MG TAB PO SCH (08:39)
[2017-10-02] MEDS: Multivitamin W/ Minerals 1 TAB PO SCH (08:39)
[2017-10-02] MEDS: HYDROcodone/Acetaminophen 10/325 mg Tablet PO PRN ×2 (08:39→15:48)
[2017-10-02] MEDS: Ferrous Gluconate 324 MG TAB PO SCH ×2 (08:39→15:48)
[2017-10-02] MEDS: Clotrimazole 1 % Cream 30 GM TUBE TOP SCH ×2 (08:41→20:23)
[2017-10-02] MEDS: Enoxaparin Sodium 30 MG/0.3 ML SYRINGE SC SCH (08:41)
--- NOTE | 2017-10-02 11:09 | PRG ---
DATE OF SERVICE: 10/02/2017 The patient is status post ground level fall in which she sustained a left distal femur fracture whic h she has undergone surgical repair of. The patient reports that she is still not ambulating with ph ysical therapy due to fear of falling once again today. She was reassured that this was very unlikel y that the staff was very aware of her medical condition and is very experienced in working with thes e patients and we emphasized that in order for her to continue to progress, she would have to start w orking with physical therapy as far as ambulation. The patient states that her pain is controlled. She is tolerating a diet. Her bowels are functioning. PHYSICAL EXAMINATION: VITAL SIGNS: Temperature is 97.8, heart rate 76, blood pressure 126/71, respirations 16, oxygen satu ration is 96% on room air. GENERAL: The patient is resting comfortably in bed. She is actually sitting on the side of the bed this morning. She is alert and oriented x3. [place] coma scale is 15. HEENT: Unremarkable. CHEST: Clear to auscultation bilaterally. HEART: Regular rate and rhythm. ABDOMEN: Soft, flat, and nontender with active bowel sounds. EXTREMITIES: Neurovascularly intact x4. There were no labs or radiographs to review. ASSESSMENT AND PLAN: 1. Status post ground level fall. 2. Status post open reduction internal fixation of left distal femur fracture. PLAN: The plan will be to continue physical and occupational therapy and await placement decision. As of Monday we expect that with the holiday and that the patient will have a decision tomorrow. This case was evaluated and examined with Dr. Greenberg during rounds this morning.
[2017-10-02] MEDS: HumaLOG 300 UNITS/3 ML VIAL SC PRN ×2 (11:44→15:49)
[2017-10-03] MEDS: Ciprofloxacin 500 MG TAB PO SCH ×2 (05:44→20:09)
[2017-10-03] MEDS: HumaLOG 300 UNITS/3 ML VIAL SC PRN ×4 (05:48→20:59)
[2017-10-03] MEDS: Polyethylene Glycol 3350 17 GM Packet PO SCH (08:55)
[2017-10-03] MEDS: Fluconazole 100 MG TAB PO SCH (08:55)
[2017-10-03] MEDS: metFORMIN XR 500 MG TAB PO SCH (08:56)
[2017-10-03] MEDS: HYDROcodone/Acetaminophen 10/325 mg Tablet PO PRN ×2 (08:56→15:13)
[2017-10-03] MEDS: Senokot 8.6 MG TAB PO SCH (08:57)
[2017-10-03] MEDS: Multivitamin W/ Minerals 1 TAB PO SCH (08:57)
[2017-10-03] MEDS: Docusate 100 MG CAP PO SCH (08:57)
[2017-10-03] MEDS: Famotidine 20 MG TAB PO SCH ×2 (08:57→20:09)
[2017-10-03] MEDS: Ferrous Gluconate 324 MG TAB PO SCH ×2 (08:57→16:57)
[2017-10-03] MEDS: Alogliptin 25 MG TAB PO SCH (08:57)
[2017-10-03] MEDS: Clotrimazole 1 % Cream 30 GM TUBE TOP SCH ×2 (08:58→20:23)
[2017-10-03] MEDS: Enoxaparin Sodium 30 MG/0.3 ML SYRINGE SC SCH (09:04)
[2017-10-03] MEDS ORDERED: Ibuprofen 600 MG TAB PO PRN (12:11)
--- NOTE | 2017-10-03 17:23 | PRG ---
DATE OF SERVICE: 10/03/2017 ATTENDING PHYSICIAN: Dr. Kiko Greenberg. This is Eugenie Estrada N.P. dictating a daily progress note for Kiko Greenberg D.O. SUBJECTIVE: The patient is postoperative day 10, status post ORIF of left distal femur fracture. She apparently has been slow to mobilize with physical therapy due to fear of falling. She was initially considering rehab or care home facility placement. Placement was delayed due to the extended holiday weekend. She reports today that she was not able to work with physical therapy yesterday as they did not visit her. OBJECTIVE: VITAL SIGNS: Temperature 97.9, pulse 68, respirations 16, O2 sat 96%, blood pressure 138/79. GENERAL: The patient seen sitting on edge of bed. Knee immobilizer in place. HEENT: Atraumatic, normocephalic. PULMONARY: No respiratory distress. RESPIRATORY: Even and unlabored. CARDIOVASCULAR: Regular rate and rhythm. ABDOMEN: Soft, nontender, nondistended. EXTREMITIES: Cap refill brisk. Moves all extremities. Some degree of numbness and tingling due to chronic neuropathy. ASSESSMENT: 1. Status post ground level fall. 2. Status post open reduction and internal fixation of left distal femur fracture. PLAN: 1. Continue physical and occupational therapy. 2. Patient reports at this time she does not wish to pursue rehab or care home facility options. Discussed with PT, OT exercises for patient to begin transition to home care with home health therapy. 3. Case management following for discharge planning. 4. Lovenox for DVT prophylaxis. The patient was seen and examined with Dr. Greenberg, attending trauma surgeon, who agrees with the assessment and plan. [facility]
[2017-10-03] MEDS: Ondansetron ODT 4 MG TAB PO PRN (20:09)
[2017-10-04] MEDS: Ciprofloxacin 500 MG TAB PO SCH (06:28)
[2017-10-04] MEDS: Ferrous Gluconate 324 MG TAB PO SCH ×2 (08:41→16:36)
[2017-10-04] MEDS: Alogliptin 25 MG TAB PO SCH (08:42)
[2017-10-04] MEDS: Docusate 100 MG CAP PO SCH (08:42)
[2017-10-04] MEDS: Senokot 8.6 MG TAB PO SCH (08:42)
[2017-10-04] MEDS: Fluconazole 100 MG TAB PO SCH (08:42)
[2017-10-04] MEDS: Famotidine 20 MG TAB PO SCH (08:42)
[2017-10-04] MEDS: Multivitamin W/ Minerals 1 TAB PO SCH (08:42)
[2017-10-04] MEDS: metFORMIN XR 500 MG TAB PO SCH (08:42)
[2017-10-04] MEDS: Enoxaparin Sodium 30 MG/0.3 ML SYRINGE SC SCH (08:43)
[2017-10-04] MEDS: Clotrimazole 1 % Cream 30 GM TUBE TOP SCH (08:43)
[2017-10-04] MEDS: Polyethylene Glycol 3350 17 GM Packet PO SCH (08:43)
[2017-10-04] MEDS: HumaLOG 300 UNITS/3 ML VIAL SC PRN (11:49)
[2017-10-04 15:49] VITALS: BP 135/71; TEMP 98.1
[2017-10-04 18:05] LABS: Bilirubin Negative (Negative); Blood, Urine Trace (Negative); Clarity CLOUDY (Clear); Glucose, Urine (Dipstick) Negative (Negative); Leukocyte Negative (Negative); Nitrite Negative (Negative); Protein, Urine (Dipstick) Negative (Neg-Trace); Specific Gravity, Urine 1.012 (1.002-1.036); Urobilinogen 0.2 mg/dL (0.2-1.0); pH, Urine 5.5 (5.0-9.0)
[2017-10-04 18:07] LABS: Bacteria/HPF None Seen HPF (None Seen); Hyaline Casts/LPF 0-3 HYALINE CAST LPF (0-3 Hyaline); Pathc Cast-AUWi Flag 0.67 (0-2.49); WBC/HPF 0-3 HPF (0-3)
--- NOTE | 2017-10-05 12:23 | DIS ---
DATE OF ADMISSION: 09/22/2017 DATE OF DISCHARGE: 10/04/2017 ADMITTING PHYSICIAN: Jarrod Cordero MD CONSULTING PHYSICIAN: Jarad Soliz MD, Orthopedics. REASON FOR HOSPITALIZATION: Ground-level fall with left leg pain. HOSPITAL DIAGNOSES: 1. Left distal femur fracture, supracondylar fracture demonstrating intercondylar split. 2. Diabetes. 3. Chronic neuropathy. 4. Hypertension. 5. Hyperlipidemia. 6. Osteopenia. DISCHARGE CONDITION: Good, discharged to home. PROCEDURE: Open reduction internal fixation of supracondylar fracture with intercondylar split. DATE OF PROCEDURE: 09/23/2017. SURGEON: Jarad Soliz MD FOLLOWUP: The patient will follow up with Dr. Jarad Soliz in 1 week. DISCHARGE MEDICATIONS: 1. Lovenox 40 mg subcu once a day. 2. [place] 10/325, one to two p.o. q.4 hours p.r.n. pain. BRIEF SUMMARY OF HOSPITALIZATION: A 61-year-old female with history of diabetes and diabetic neuropathy with limited ambulatory status who was attempting to ambulate in her house when she fell down onto her left knee. She had immediate pain. EMS was summoned and she was transported to an outside facility where a left femur fracture was identified. She was then transferred to [facility] for a higher level of care. She was admitted to the hospital by Trauma services. Dr. Jarad Soliz, Orthopedics, was consulted. Dr. Soliz took the patient to the OR on hospital day #1 for fixation of the femur fracture. She was then managed on the surgical floor. She had episodes of hyperglycemia requiring escalation of sliding scale insulin. She was slow to mobilize with PT/OT. Therapy services recommended rehab at discharge; however, the patient was denied rehab placement by her insurance. The patient actually stated she preferred to go home with home health therapy. Case management was consulted and home health therapy was arranged as well as DME. She had no other postoperative complications. She was discharged to home on 10/04/2017. She is to follow up with Dr. Soliz in 1 week. She is also to follow up with her PCP for continued management of chronic health problems including diabetes. She was given discharge instructions, strict return precautions, and followup information. The patient was seen and examined with Dr. Greenberg, who agrees with the assessment and plan for discharge. [facility]
--- NOTE | 2017-10-07 13:32 | EKG ---
Test Reason : STAT Blood Pressure : / mmHG Vent. Rate : 067 BPM Atrial Rate : 067 BPM P-R Int : 158 ms QRS Dur : 078 ms QT Int : 424 ms P-R-T Axes : 035 012 044 degrees QTc Int : 448 ms Normal sinus rhythm Normal ECG Confirmed by JEANINE SINGH MD ([id number]) on 10/07/2017 1:32:29 PM Referred By: SAHRA Confirmed By:JEANINE SINGH MD
== END 2017-10-04 19:25 | disposition home or self-care (01) | DRG 482 ==
LOC: ERS 15:18 → SURG B 17:05
PROVIDERS: ADMIT Orthopaedic Surgery; ATTEND Orthopaedic Surgery
PROC: 0QSC04Z Reposition Left Lower Femur with Internal Fixation Device, Open Approach (ICD-10-PCS; principal; 2017-09-23)
DX: S72.462A Displaced supracondylar fracture with intracondylar extension of lower end of left femur, initial encounter for closed fracture (principal); E11.40 Type 2 diabetes mellitus with diabetic neuropathy, unspecified; E11.65 Type 2 diabetes mellitus with hyperglycemia; E78.5 Hyperlipidemia, unspecified; I10 Essential (primary) hypertension; M85.80 Other specified disorders of bone density and structure, unspecified site; W18.30XA Fall on same level, unspecified, initial encounter
CPT/HCPCS: 36415; 36416; 71010; 72170; 76001; 80048; 80053; 81001; 81003; 81015; 83735; 84100; 85025; 85027; 85610; 85730; 86850; 86900; 86901; 93005; 93010; 96374; C1713; C1769; G0390; G8978-GP-CL; G8979-GP-CK; G8987-GO-CL; G8988-GO-CI; J1650; J1815; J1885; J1956; J2001; J2270; J2405; J2704; J3010; Q0162; S0028

== ENCOUNTER 2023-07-17 08:20 | Outpatient (CLI) | payer OTHER | END 2023-07-17 08:21 | disposition home or self-care (01) | LOC: ULT 08:20 | PROVIDERS: ATTEND Nurse Practitioner Family | DX: I73.9 Peripheral vascular disease, unspecified (principal); R93.6 Abnormal findings on diagnostic imaging of limbs | CPT/HCPCS: 93923 ==